=== PATIENT | male | born 1990 | race African-American/Black ===

== ENCOUNTER 2016-12-23 15:31 | Emergency (ER) | payer SELFPAY ==
--- NOTE | 2016-12-23 15:38 | PD ---
HPI . chest pain x 1 year Chief Complaint: chest pain x 1 year Time Seen by Provider: 15:38 Travel History International Travel<30 days: No Contact w/Intl Traveler<30days: No Traveled to known affect area: No History of Present Illness HPI 26 yr old male here with complaints of chest pain for 1 year. Patient tells me that he has chest pain every day for 1 year and he has been to this hospital numerous times and has not had anything done about his chest pain. I have reviewed his records and I do not see any visits for chest pain. He says the pain is deep in his chest and sharp without radiation. He admits to nausea, vomiting, and shortness of breath. When asked about the duration of the symptoms, he tells me that this happens every day. He says he last vomited yesterday 3. In regards to shortness of breath he has none at this time. He does not have a primary care provider and tells me he is homeless. He states he is from [place] and does not know where his family is. He appears to be intoxicated by a drug or some substance, he declines usage. He admits to smoking cigarettes daily. [facility] Social History Alcohol Use: Yes Tobacco Use: Yes Substance Use: No Allergies-Medications (Allergen,Severity, Reaction): Coded Allergies: No Known Allergies (Unverified , 12/23/16) Review of Systems General / Constitutional: No: Fever Eyes: No: Visual changes HENT: No: Headaches Cardiovascular: Positive: Chest Pain or Discomfort Respiratory: Positive: Shortness of Breath Gastrointestinal: Positive: Nausea, Vomiting, No: Abdominal Pain Genitourinary: No: Dysuria Musculoskeletal: No: Pain Skin: No Rash Neurologic: No: Weakness Psychiatric: No: Depression Endocrine: No: Polydipsia Hematologic/Lymphatic: No: Easy Bruising Physical Exam Narrative GENERAL: AAO x 3, no acute distress, Well-nourished, well-developed patient. SKIN: Warm and dry. No visible rashes or bruising. HEAD: Normocephalic and atraumatic. EYES: No scleral icterus. No injection or drainage. EOM intact, PERRLA, mild erythema of sclera ENT: No nasal drainage noted. Mucous membranes pink. Airway patent. NECK: Supple, trachea midline. No JVD. CARDIOVASCULAR: Regular rate and rhythm without murmurs, gallops, or rubs. non reproducible chest pain on palpation RESPIRATORY: Breath sounds equal bilaterally. No accessory muscle use. No rhonchi or rales. GASTROINTESTINAL: Abdomen soft, non-tender, nondistended. EXTREMITIES: No cyanosis or edema. BACK: Nontender without obvious deformity. No CVA tenderness. 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 Data Data Last Documented VS Vital Signs Date Time Temp Pulse Resp B/P Pulse Ox O2 Delivery O2 Flow Rate FiO2 12/23/16 15:41 110 17 98 Room Air Orders Electrocardiogram (12/23/16 15:42) Basic Metabolic Panel (Bmp) (12/23/16 15:42) Ckmb (Isoenzyme) Profile (12/23/16 15:42) Complete Blood Count With Diff (12/23/16 15:42) Magnesium (Mg) (12/23/16 15:42) Prothrombin Time / Inr (Pt) (12/23/16 15:42) Act Partial Throm Time (Ptt) (12/23/16 15:42) Troponin I (12/23/16 15:42) Chest, Single Ap (12/23/16 15:42) Ecg Monitoring (12/23/16 15:42) Bilateral Bp Monitoring (12/23/16 15:42) Iv Access Insert/Monitor (12/23/16 15:42) Oximetry (12/23/16 15:42) Oxygen Administration (12/23/16 15:42) Sodium Chloride 0.9% Flush (Ns Flush) (12/23/16 15:45) Drug Screen, Random Urine (12/23/16 15:42) MDM Medical Decision Making Medical Screen Exam Complete: Yes Emergency Medical Condition: Yes Medical Record Reviewed: Yes Differential Diagnosis Chest pain, angina, ACS, Narrative Course I started workup on this patient. Apparently when Radiology came to take xray he was agitated and wanted to leave. 1549: I witnessed patient leaving the emergency department. He pulled his IV out and walked out of the emergency department. Diagnosis Primary Impression: Left against medical advice Disposition: AGAINST MEDICAL ADVICE Condition: Stable Belkis Rodriguez Dec 23, 2016 15:38
[2016-12-23] MEDS ORDERED: SODIUM CHLORIDE 0.9% FLUSH 10 ML FLUSH IVF PRN (15:45)
== END 2016-12-23 16:08 | disposition left against medical advice (07) ==
LOC: NEPD 15:31
DX: Z53.21 Procedure and treatment not carried out due to patient leaving prior to being seen by health care provider (principal)
CPT/HCPCS: 99281

== ENCOUNTER 2016-12-23 18:24 | Emergency (ER) | payer SELFPAY ==
[~2016-12-23] VITALS: Ht 182.9 cm; Wt 75.0 kg
[2016-12-23 18:29] VITALS: BP 138/78; PULSE 104; RESP 16; TEMP 98.2; O2SAT 98
--- NOTE | 2016-12-24 12:24 | EKG ---
Date Performed: 12/24/2016 Time Performed: 00:40:53 PTAGE: 26 years EKG: Sinus rhythm NONSPECIFIC T-WAVE ABNORMALITY BORDERLINE ECG NO PREVIOUS TRACING DOCTOR: Mo Pruitt Interpretating Date/Time 12/24/2016 12:20:16
== END 2016-12-24 | disposition left against medical advice (07) ==
LOC: NEPE 18:24
DX: R07.9 Chest pain, unspecified (principal); Z53.20 Procedure and treatment not carried out because of patient's decision for unspecified reasons
CPT/HCPCS: 93005; 99281

== ENCOUNTER 2016-12-23 23:16 | Emergency (ER) | payer SELFPAY ==
[~2016-12-23] VITALS: Ht 188 cm; Wt 97.0 kg
[2016-12-23 23:18] VITALS: BP 139/79; PULSE 82; RESP 16; TEMP 98.6; O2SAT 98
[2016-12-24] MEDS ORDERED: SODIUM CHLORIDE 0.9% FLUSH 10 ML FLUSH IVF PRN (01:15)
[2016-12-24] MEDS ORDERED: KETOROLAC TROMETHAMINE 30 MG/ML (IVP) VIAL IV PUSH ONE (01:15)
[2016-12-24] MEDS ORDERED: SODIUM CHLOR 0.9% 1000 ML INJ 1,000 ML IV ONE (01:15)
[2016-12-24 01:52] LABS: AUTOMATED NEUTROPHIL # 3.6 TH/MM3 (1.8-7.7); BASOPHIL % 0.3 % (0.0-2.0); EOSINOPHIL # 0.1 TH/MM3 (0-0.4); EOSINOPHIL % 1.5 % (0.0-4.0); HEMATOCRIT 42.8 % (39.0-51.0); HEMO FLAGS DIFF FINAL; LYMPH % 36.3 % (9.0-44.0); LYMPHOCYTE # 2.5 TH/MM3 (1.0-4.8); MEAN CORPUSCULAR HEMOGLOBIN 32.1 PG (27.0-34.0); MEAN CORPUSCULAR HGB CONC 32.8 % (32.0-36.0); MONO % 9.2 % (0.0-8.0); NEUT % 52.7 % (16.0-70.0); PLATELET COUNT 204 TH/MM3 (150-450); RED BLOOD COUNT 4.37 MIL/MM3 (4.50-5.90); RED CELL DISTRIBUTION WIDTH 12.1 % (11.6-17.2); WHITE BLOOD COUNT 6.8 TH/MM3 (4.0-11.0)
--- NOTE | 2016-12-24 01:53 | RADRPT ---
EXAM DATE/TIME: 12/24/2016 01:18 [facility] COMPARISON: No previous studies available for comparison. INDICATIONS : Chest pain and shortness of breath. MEDICAL HISTORY : None. SURGICAL HISTORY : None. ENCOUNTER: Initial ACUITY: 1 week PAIN SCORE: 7/10 LOCATION: Bilateral chest FINDINGS: A single view of the chest demonstrates the lungs to be symmetrically aerated without evidence of mas s, infiltrate or effusion. The cardiomediastinal contours are unremarkable. Osseous structures are intact. CONCLUSION: No acute disease. Gurwinder Ford MD on December 24, 2016 at 1:51 Board Certified Radiologist. This report was verified electronically.
[2016-12-24 02:00] VITALS: RESP 20; O2SAT 100
[2016-12-24 02:27] LABS: APTT (PATIENT) 28.5 SEC (24.3-30.1)
--- NOTE | 2016-12-24 02:36 | PD ---
HPI Chief Complaint: Chest Pain Time Seen by Provider: 00:58 Travel History International Travel<30 days: No Contact w/Intl Traveler<30days: No Traveled to known affect area: No History of Present Illness HPI Patient is a 26-year-old male who presents to emergency room for evaluation of chest pain. Patient reports that he has been having chest pain for the past year, reports that symptoms have been intermittent in nature. Patient reports only has pain, pain is located to his left chest, reports the pain felt a sharp and stabbing sensation to his chest. Reports the pain is nonradiating in nature. Patient reports that nothing makes his pain better or worse. Patient denies any diaphoresis, nausea or vomiting with symptoms. Patient denies any shortness of breath with his symptoms. Reports no recent travels or trips. Reports that he does not have any medical history, reports that he is a smoker, and does use marijuana occasionally. Patient denies any use of cocaine. Patient denies family history of early coronary artery disease PFSH Past Medical History Medical History: Denies Significant Hx Past Surgical History Surgical History: No Previous Surgery Social History Alcohol Use: Yes (ONCE WEEKLY) Tobacco Use: Yes (1 PPW) Substance Use: No Allergies-Medications (Allergen,Severity, Reaction): Coded Allergies: No Known Allergies (Unverified , 12/24/16) Reported Meds & Prescriptions Reported Meds & Active Scripts Active No Active Prescriptions or Reported Medications Review of Systems General / Constitutional: No: Fever Eyes: No: Visual changes HENT: No: Headaches Cardiovascular: Positive: Chest Pain or Discomfort, Palpitations Respiratory: No: Shortness of Breath Gastrointestinal: No: Abdominal Pain Genitourinary: No: Dysuria Musculoskeletal: No: Pain Skin: No Rash Neurologic: No: Weakness Psychiatric: No: Depression Endocrine: No: Polydipsia Hematologic/Lymphatic: No: Easy Bruising Physical Exam Narrative GENERAL: Nad, nontoxic SKIN: Focused skin assessment warm/dry. HEAD: Atraumatic. Normocephalic. EYES: Pupils equal and round. No scleral icterus. No injection or drainage. ENT: No nasal bleeding or discharge. Mucous membranes pink and moist. NECK: Trachea midline. No JVD. CARDIOVASCULAR: Regular rate and rhythm. No murmur appreciated. RESPIRATORY: No accessory muscle use. Clear to auscultation. Breath sounds equal bilaterally. GASTROINTESTINAL: Abdomen soft, non-tender, nondistended. Hepatic and splenic margins not palpable. MUSCULOSKELETAL: No obvious deformities. No clubbing. No cyanosis. No edema. NEUROLOGICAL: Awake and alert. No obvious cranial nerve deficits. Motor grossly within normal limits. Normal speech. PSYCHIATRIC: Appropriate mood and affect; insight and judgment normal. Data Data Last Documented VS Vital Signs Date Time Temp Pulse Resp B/P Pulse Ox O2 Delivery O2 Flow Rate FiO2 12/24/16 03:26 20 12/23/16 23:18 98.6 82 139/79 98 Orders Basic Metabolic Panel (Bmp) (12/24/16 01:01) Complete Blood Count With Diff (12/24/16 01:01) D-Dimer (12/24/16 01:01) Magnesium (Mg) (12/24/16 01:01) Prothrombin Time / Inr (Pt) (12/24/16 01:01) Act Partial Throm Time (Ptt) (12/24/16 01:01) Chest, Single Ap (12/24/16 01:01) Ecg Monitoring (12/24/16 01:01) Iv Access Insert/Monitor (12/24/16 01:01) Oximetry (12/24/16 01:01) Sodium Chloride 0.9% Flush (Ns Flush) (12/24/16 01:15) Sodium Chlor 0.9% 1000 Ml Inj (Ns 1000 M (12/24/16 01:15) Ketorolac Inj (Toradol Inj) (12/24/16 01:15) Labs Laboratory Tests Test 12/24/16 01:25 White Blood Count 6.8 TH/MM3 Red Blood Count 4.37 MIL/MM3 Hemoglobin 14.0 GM/DL Hematocrit 42.8 % Mean Corpuscular Volume 98.0 FL Mean Corpuscular Hemoglobin 32.1 PG Mean Corpuscular Hemoglobin 32.8 % Concent Red Cell Distribution Width 12.1 % Platelet Count 204 TH/MM3 Mean Platelet Volume 7.8 FL Neutrophils (%) (Auto) 52.7 % Lymphocytes (%) (Auto) 36.3 % Monocytes (%) (Auto) 9.2 % Eosinophils (%) (Auto) 1.5 % Basophils (%) (Auto) 0.3 % Neutrophils # (Auto) 3.6 TH/MM3 Lymphocytes # (Auto) 2.5 TH/MM3 Monocytes # (Auto) 0.6 TH/MM3 Eosinophils # (Auto) 0.1 TH/MM3 Basophils # (Auto) 0.0 TH/MM3 CBC Comment DIFF FINAL Differential Comment Prothrombin Time 11.0 SEC Prothromb Time International 1.0 RATIO Ratio Activated Partial 28.5 SEC Thromboplast Time D-Dimer Quantitative (PE/DVT) 0.32 MG/L FEU Sodium Level 141 MEQ/L Potassium Level 3.8 MEQ/L Chloride Level 104 MEQ/L Carbon Dioxide Level 27.4 MEQ/L Anion Gap 10 MEQ/L Blood Urea Nitrogen 6 MG/DL Creatinine 0.76 MG/DL Estimat Glomerular Filtration 153 ML/MIN Rate Random Glucose 73 MG/DL Calcium Level 8.5 MG/DL Magnesium Level 1.9 MG/DL [facility] Medical Decision Making Medical Screen Exam Complete: Yes Emergency Medical Condition: Yes Interpretation(s) EKG at 0040: NSR at 73bpm, qt/qtc: 363/388, no acute ST or T-wave changes Vital Signs Date Time Temp Pulse Resp B/P Pulse Ox O2 Delivery O2 Flow Rate FiO2 12/23/16 23:18 98.6 82 16 139/79 98 Differential Diagnosis Differential includes costochondritis, ACS, arrhythmia, electrolyte abnormality , PE, pneumothorax, drug abuse Narrative Course Patient with atypical chest pain. EKG with no acute changes. Patient with no history of hypertension, hyperlipidemia or diabetes. No family history of coronary disease or NH early in age. Patient was placed on a quality assurance monitor chassis upon arrival to emergency room. EKG was obtained. Lab work including d-dimer ordered. X-ray chest ordered. Toradol ordered for pain. Vital Signs Date Time Temp Pulse Resp B/P Pulse Ox O2 Delivery O2 Flow Rate FiO2 12/24/16 03:26 20 12/23/16 23:18 98.6 82 16 139/79 98 Laboratory Tests Test 12/24/16 01:25 White Blood Count 6.8 TH/MM3 (4.0-11.0) Red Blood Count 4.37 MIL/MM3 (4.50-5.90) Hemoglobin 14.0 GM/DL (13.0-17.0) Hematocrit 42.8 % (39.0-51.0) Mean Corpuscular Volume 98.0 FL (80.0-100.0) Mean Corpuscular Hemoglobin 32.1 PG (27.0-34.0) Mean Corpuscular Hemoglobin 32.8 % Concent (32.0-36.0) Red Cell Distribution Width 12.1 % (11.6-17.2) Platelet Count 204 TH/MM3 (150-450) Mean Platelet Volume 7.8 FL (7.0-11.0) Neutrophils (%) (Auto) 52.7 % (16.0-70.0) Lymphocytes (%) (Auto) 36.3 % (9.0-44.0) Monocytes (%) (Auto) 9.2 % (0.0-8.0) Eosinophils (%) (Auto) 1.5 % (0.0-4.0) Basophils (%) (Auto) 0.3 % (0.0-2.0) Neutrophils # (Auto) 3.6 TH/MM3 (1.8-7.7) Lymphocytes # (Auto) 2.5 TH/MM3 (1.0-4.8) Monocytes # (Auto) 0.6 TH/MM3 (0-0.9) Eosinophils # (Auto) 0.1 TH/MM3 (0-0.4) Basophils # (Auto) 0.0 TH/MM3 (0-0.2) CBC Comment DIFF FINAL Differential Comment Prothrombin Time 11.0 SEC (9.8-11.6) Prothromb Time International 1.0 RATIO Ratio Activated Partial 28.5 SEC Thromboplast Time (24.3-30.1) D-Dimer Quantitative (PE/DVT) 0.32 MG/L FEU (0.00-0.50) Sodium Level 141 MEQ/L (136-145) Potassium Level 3.8 MEQ/L (3.5-5.1) Chloride Level 104 MEQ/L (98-107) Carbon Dioxide Level 27.4 MEQ/L (21.0-32.0) Anion Gap 10 MEQ/L (5-15) Blood Urea Nitrogen 6 MG/DL (7-18) Creatinine 0.76 MG/DL (0.60-1.30) Estimat Glomerular Filtration 153 ML/MIN Rate (>89) Random Glucose 73 MG/DL (74-106) Calcium Level 8.5 MG/DL (8.5-10.1) Magnesium Level 1.9 MG/DL (1.5-2.5) Last Impressions Chest X-Ray 12/24/16 0101 Signed Impressions: Service Date/Time: Saturday, December 24, 2016 01:18 - CONCLUSION: No acute disease. Gurwinder Ford MD Patient feeling much better at this time. I reviewed all labs and studies with patient in detail. Patient with most likely costochondritis. Plan to discharge patient home with follow-up with his primary care doctor. Signs and symptoms of when to return to the emergency room reviewed patient in detail. Diagnosis Primary Impression: Chest pain Additional Impression: Costochondritis Patient Instructions: General Instructions Additional Instructions: Please follow-up with your primary care doctor Return to the emergency room as needed Return to the emergency room if symptoms worsen or persist Scripts No Active Prescriptions or Reported Meds Disposition: 01 DISCHARGE HOME Condition: Stable Mary Mccormick DO Dec 24, 2016 02:36
[2016-12-24 02:56] LABS: BICARBONATE 27.4 MEQ/L (21.0-32.0); MAGNESIUM 1.9 MG/DL (1.5-2.5); POTASSIUM 3.8 MEQ/L (3.5-5.1)
[2016-12-24 03:26] VITALS: RESP 20
[2016-12-24 04:36] VITALS: BP 138/60
== END 2016-12-24 04:39 | disposition home or self-care (01) ==
LOC: NEPC 23:16
DX: M94.0 Chondrocostal junction syndrome [Tietze] (principal); F17.210 Nicotine dependence, cigarettes, uncomplicated
CPT/HCPCS: 71010; 80048; 83735; 85025; 85379; 85610; 85730; 96361; 96374; 99284; J1885; J7030

== ENCOUNTER 2017-04-12 01:10 | Emergency (ER) | payer MEDICAID ==
[~2017-04-12] VITALS: Ht 188 cm; Wt 97.0 kg
[~2017-04-12 01:10] MED LIST: IBUP1TAB7 PO
[2017-04-12 01:17] VITALS: BP 175/76; PULSE 114; RESP 24; TEMP 98.3; O2SAT 98
--- NOTE | 2017-04-12 01:35 | PD ---
HPI Chief Complaint: Pain: Acute or Chronic Time Seen by Provider: 01:28 Travel History International Travel<30 days: No Contact w/Intl Traveler<30days: No Traveled to known affect area: No History of Present Illness HPI APPARENTLY PATIENT MADE SOME COMMENTS TO GIRLFRIEND, THAT WERE SUICIDAL IN NATURE, [employer] PLACED PATIENT IN [place]. PATIENT WAS TAKEN TO [facility] WHERE HE C/O CP, AND WAS NOTED TO BE HYPERTENSIVE (PT STATES HE HAS A HISTORY OF HTN BUT HAS NOT TAKEN ANY MEDS FOR A YEAR). PATIENT DESCRIBES CP SHARP, NONRADIATING, WORSE WITH MOVEMENT. PFSH Past Medical History ADHD: Yes Bipolar Disorder: Yes Anxiety: Yes Diminished Hearing: No Hypertension: Yes (doesnt take his meds) Past Surgical History Surgical History: No Previous Surgery Social History Alcohol Use: Yes (/ pint vodka everyday) Tobacco Use: Yes (06/08 PPD) Substance Use: No Allergies-Medications (Allergen,Severity, Reaction): Coded Allergies: No Known Allergies (Unverified Adverse Reaction, Unknown, 04/12/17) Reported Meds & Prescriptions Reported Meds & Active Scripts Active Reported Ibuprofen 800 Mg Tab 800 Mg PO Q8H PRN Review of Systems Except as stated in HPI: all other systems reviewed are Neg General / Constitutional: No: Fever Eyes: No: Visual changes HENT: No: Headaches Cardiovascular: Positive: Chest Pain or Discomfort Respiratory: No: Shortness of Breath Gastrointestinal: No: Abdominal Pain Genitourinary: No: Dysuria Musculoskeletal: No: Pain Skin: No Rash Neurologic: No: Weakness Psychiatric: No: Depression Endocrine: No: Polydipsia Hematologic/Lymphatic: No: Easy Bruising Physical Exam Narrative GENERAL: SKIN: Warm and dry. HEAD: Atraumatic. Normocephalic. EYES: Pupils equal and round. No scleral icterus. No injection or drainage. ENT: No nasal bleeding or discharge. Mucous membranes pink and moist. NECK: Trachea midline. No JVD. CARDIOVASCULAR: Regular rate and rhythm. RESPIRATORY: No accessory muscle use. Clear to auscultation. Breath sounds equal bilaterally. GASTROINTESTINAL: Abdomen soft, non-tender, nondistended. MUSCULOSKELETAL: Extremities without clubbing, cyanosis, or edema. No obvious deformities. NEUROLOGICAL: Awake and alert. No obvious cranial nerve deficits. Motor grossly within normal limits. Five out of 5 muscle strength in the arms and legs. Normal speech. PSYCHIATRIC: Appropriate mood and affect; insight and judgment normal. Data Data Last Documented VS Vital Signs Date Time Temp Pulse Resp B/P (MAP) Pulse Ox O2 Delivery O2 Flow Rate FiO2 04/12/17 04:22 65 14 123/56 (78) 97 Room Air 04/12/17 01:17 98.3 Orders Orders Complete Blood Count With Diff (04/12/17 01:28) Basic Metabolic Panel (Bmp) (04/12/17:28) Urinalysis - C+S If Indicated (04/12/17:28) Electrocardiogram (04/12/17:28) Psych Screen (04/12/17:) Drug Screen, Random Urine (04/12/17:) Alcohol (Ethanol) (04/12/17:28) Salicylates (Aspirin) (04/12/17:28) Tylenol (Acetaminophen) (04/12/17 01:28) Troponin I (04/12/17 01:54) Clonidine (Catapres) (04/12/17 02:15) Troponin I (04/12/17 05:00) Chest, Single Ap (04/12/17 05:38) Labs Laboratory Tests Test 04/12/17 02:00 04/12/17 04:15 White Blood Count 6.0 TH/MM3 Red Blood Count 4.76 MIL/MM3 Hemoglobin 15.6 GM/DL Hematocrit 46.4 % Mean Corpuscular Volume 97.5 FL Mean Corpuscular Hemoglobin 32.7 PG Mean Corpuscular Hemoglobin Concent 33.6 % Red Cell Distribution Width 12.0 % Platelet Count 200 TH/MM3 Mean Platelet Volume 7.9 FL Neutrophils (%) (Auto) 42.6 % Lymphocytes (%) (Auto) 48.5 % Monocytes (%) (Auto) 8.1 % Eosinophils (%) (Auto) 0.3 % Basophils (%) (Auto) 0.5 % Neutrophils # (Auto) 2.6 TH/MM3 Lymphocytes # (Auto) 2.9 TH/MM3 Monocytes # (Auto) 0.5 TH/MM3 Eosinophils # (Auto) 0.0 TH/MM3 Basophils # (Auto) 0.0 TH/MM3 CBC Comment AUTO DIFF Differential Comment AUTO DIFF CONFIRMED Platelet Estimate NORMAL Platelet Morphology Comment NORMAL Red Cell Morphology Comment NORMAL Blood Urea Nitrogen 9 MG/DL Creatinine 0.79 MG/DL Random Glucose 94 MG/DL Calcium Level 8.8 MG/DL Sodium Level 140 MEQ/L Potassium Level 3.4 MEQ/L Chloride Level 102 MEQ/L Carbon Dioxide Level 23.6 MEQ/L Anion Gap 14 MEQ/L Estimat Glomerular Filtration Rate 145 ML/MIN Troponin I LESS THAN 0.02 NG/ML LESS THAN 0.02 NG/ML Salicylates Level 2.9 MG/DL Acetaminophen Level LESS THAN 2.0 MCG/ML Ethyl Alcohol Level 296 MG/DL MDM Medical Decision Making Medical Screen Exam Complete: Yes Emergency Medical Condition: Yes Medical Record Reviewed: Yes Interpretation(s) EKG NSR 98, NL INTERVALS, NO STEMI PATTERN, J POINT ELEVATION Differential Diagnosis ATYPICAL CP V STEMI V NONSTEMI Narrative Course CXR IS NEG FOR PNA/PTX....EKG NEG FOR IN, TROPONIN X 2 NEG FOR NONSTEMI WELL. PATIENT IS PAIN FREE (AND HAS BEEN PAIN FREE SINCE ARRIVING IN ER DEPARTMENT). Diagnosis Primary Impression: [place] Additional Impressions: MEDICALLY CLEARED Non-cardiac chest pain Niko Moise MD Apr 12, 2017 01:35
[2017-04-12] MEDS: cloNIDine HCL 0.1 MG TAB PO ONE ×2 (02:30→02:41)
[2017-04-12 02:43] LABS: AUTOMATED NEUTROPHIL # 2.6 TH/MM3 (1.8-7.7); BASOPHIL % 0.5 % (0.0-2.0); EOSINOPHIL % 0.3 % (0.0-4.0); HEMATOCRIT 46.4 % (39.0-51.0); LYMPH % 48.5 % (9.0-44.0); LYMPHOCYTE # 2.9 TH/MM3 (1.0-4.8); MEAN CELL VOLUME 97.5 FL (80.0-100.0); MEAN CORPUSCULAR HEMOGLOBIN 32.7 PG (27.0-34.0); MEAN CORPUSCULAR HGB CONC 33.6 % (32.0-36.0); MONO % 8.1 % (0.0-8.0); NEUT % 42.6 % (16.0-70.0); PLATELET COUNT 200 TH/MM3 (150-450); RED BLOOD COUNT 4.76 MIL/MM3 (4.50-5.90)
[2017-04-12 02:46] LABS: HEMO FLAGS AUTO DIFF
[2017-04-12 03:17] LABS: ANION GAP 14 MEQ/L (5-15)
[2017-04-12 03:29] LABS: BICARBONATE 23.6 MEQ/L (21.0-32.0); BLOOD UREA NITROGEN 9 MG/DL (7-18); CHLORIDE 102 MEQ/L (98-107); GLOMERULAR FILTRATION RATE 145 ML/MIN (>89); POTASSIUM 3.4 MEQ/L (3.5-5.1); SODIUM (NA) 140 MEQ/L (136-145)
[2017-04-12 03:37] LABS: ACETAMINOPHEN LESS THAN 2.0 MCG/ML (10.0-30.0); ALCOHOL 296 MG/DL (0-5)
[2017-04-12 03:43] LABS: PLATELET ESTIMATE SMEAR NORMAL (NORMAL)
[2017-04-12 03:44] LABS: PLATELET MORPHOLOGY NORMAL (NORMAL); SCAN/DIFF AUTO DIFF CONFIRMED
[2017-04-12 04:22] VITALS: BP 123/56; PULSE 65; RESP 14; O2SAT 97
--- NOTE | 2017-04-12 06:09 | RADRPT ---
EXAM DATE/TIME: 04/12/2017 05:44 [facility] COMPARISON: CHEST SINGLE AP, December 24, 2016, 1:18. INDICATIONS : Chest pain. MEDICAL HISTORY : None. SURGICAL HISTORY : None. ENCOUNTER: Initial ACUITY: 1 day PAIN SCORE: 0/10 LOCATION: Bilateral chest FINDINGS: A single view of the chest demonstrates the lungs to be symmetrically aerated without evidence of mas s, infiltrate or effusion. The cardiomediastinal contours are unremarkable. Osseous structures are intact. CONCLUSION: 1. No acute cardiopulmonary disease. Tremaine Madrid MD on April 12, 2017 at 6:07 Board Certified Radiologist. This report was verified electronically.
[2017-04-12 06:27] VITALS: BP 153/70; PULSE 95; RESP 18; O2SAT 97
[2017-04-12 08:45] LABS: BLOOD, URINE NEG (NEG); COMMENT (UR) CULT NOT INDICATED; CULTURE IF INDICATED CULT NOT INDICATED; GLUCOSE,URINE NEG (NEG); HYALINE CAST, URINE 1 /lpf (RARE); KETONE, URINE NEG (NEG); MUCUS URINE MANY /lpf (OCC); NITRITE,URINE NEG (NEG); SQUAMOUS EPITHELIAL CELL URINE 1 /hpf (0-5); URINE COLOR YELLOW (YELLW/STRAW)
--- NOTE | 2017-04-12 09:36 | EKG ---
Date Performed: 04/12/2017 Time Performed: 01:16:59 PTAGE: 27 years EKG: Sinus rhythm SEPTAL MYOCARDIAL INFARCTION ABNORMAL ECG PREVIOUS TRACING : 12/24/2016 00.40 DOCTOR: Kamlesh Liu Interpretating Date/Time 04/12/2017 09:33:15
[2017-04-12 10:57] VITALS: BP 174/75; PULSE 94; RESP 18; TEMP 98.2; O2SAT 98
[2017-04-12] MEDS ORDERED: AMLO5TAB2 PO (11:13)
[2017-04-12] MEDS ORDERED: amLODIPine BESYLATE 5 MG TAB PO ONE (11:15)
--- NOTE | 2017-04-12 11:15 | PD ---
Physical Exam Time Seen by Provider: 11:14 Data Data Last Documented VS Vital Signs Date Time Temp Pulse Resp B/P (MAP) Pulse Ox O2 Delivery O2 Flow Rate FiO2 04/12/17 10:57 98.2 94 18 174/75 (108) 98 04/12/17 06:27 Room Air Orders Orders Complete Blood Count With Diff (04/12/17 01:28) Basic Metabolic Panel (Bmp) (04/12/17 01:28) Urinalysis - C+S If Indicated (04/12/17 01:28) Electrocardiogram (04/12/17 01:28) Psych Screen (04/12/17 01:28) Drug Screen, Random Urine (04/12/17 01:28) Alcohol (Ethanol) (04/12/17 01:28) Salicylates (Aspirin) (04/12/17 01:28) Tylenol (Acetaminophen) (04/12/17 01:28) Troponin I (04/12/17 01:54) Clonidine (Catapres) (04/12/17 02:15) Troponin I (04/12/17 05:00) Chest, Single Ap (04/12/17 05:38) Diet Regular Basic (04/12/17 Breakfast) Labs Laboratory Tests Test 04/12/17 02:00 04/12/17 04:15 04/12/17 08:15 White Blood Count 6.0 TH/MM3 Red Blood Count 4.76 MIL/MM3 Hemoglobin 15.6 GM/DL Hematocrit 46.4 % Mean Corpuscular Volume 97.5 FL Mean Corpuscular Hemoglobin 32.7 PG Mean Corpuscular Hemoglobin Concent 33.6 % Red Cell Distribution Width 12.0 % Platelet Count 200 TH/MM3 Mean Platelet Volume 7.9 FL Neutrophils (%) (Auto) 42.6 % Lymphocytes (%) (Auto) 48.5 % Monocytes (%) (Auto) 8.1 % Eosinophils (%) (Auto) 0.3 % Basophils (%) (Auto) 0.5 % Neutrophils # (Auto) 2.6 TH/MM3 Lymphocytes # (Auto) 2.9 TH/MM3 Monocytes # (Auto) 0.5 TH/MM3 Eosinophils # (Auto) 0.0 TH/MM3 Basophils # (Auto) 0.0 TH/MM3 CBC Comment AUTO DIFF Differential Comment AUTO DIFF CONFIRMED Platelet Estimate NORMAL Platelet Morphology Comment NORMAL Red Cell Morphology Comment NORMAL Blood Urea Nitrogen 9 MG/DL Creatinine 0.79 MG/DL Random Glucose 94 MG/DL Calcium Level 8.8 MG/DL Sodium Level 140 MEQ/L Potassium Level 3.4 MEQ/L Chloride Level 102 MEQ/L Carbon Dioxide Level 23.6 MEQ/L Anion Gap 14 MEQ/L Estimat Glomerular Filtration Rate 145 ML/MIN Troponin I LESS THAN 0.02 NG/ML LESS THAN 0.02 NG/ML Salicylates Level 2.9 MG/DL Acetaminophen Level LESS THAN 2.0 MCG/ML Ethyl Alcohol Level 296 MG/DL Urine Color YELLOW Urine Turbidity CLEAR Urine pH 6.0 Urine Specific [place] 1.037 Urine Protein 30 mg/dL Urine Glucose (UA) NEG mg/dL Urine Ketones NEG mg/dL Urine Occult Blood NEG Urine Nitrite NEG Urine Bilirubin NEG Urine Urobilinogen 2.0 MG/DL Urine Leukocyte Esterase NEG Urine RBC LESS THAN 1 /hpf Urine WBC 2 /hpf Urine Squamous Epithelial Cells 1 /hpf Urine Hyaline Casts 1 /lpf Urine Mucus MANY /lpf Microscopic Urinalysis Comment CULT NOT INDICATED Urine Opiates Screen NEG Urine Barbiturates Screen NEG Urine Amphetamines Screen NEG Urine Benzodiazepines Screen NEG Urine Cocaine Screen POS Urine Cannabinoids Screen POS MDM Medical Record Reviewed: Yes Supervised Visit with JULIO: No Narrative Course Please see previous providers notes. I was asked to deal with his hypertension. He has a history of hypertension but has not been medicated for over a year. He does not remember what his blood pressure medication was. He will be started on a low-dose amlodipine and he is apparently being transferred back to [facility] today. Diagnosis Primary Impression: [place] Additional Impressions: Non-cardiac chest pain MEDICALLY CLEARED Scripts Amlodipine (Amlodipine) 5 Mg Tab 5 MG PO DAILY for Blood Pressure Management, #30 TAB 0 Refills Prov: Niko Moise MD 04/12/17 Rory Ventura Apr 12, 2017 11:15
== END 2017-04-12 13:36 ==
LOC: NEPC 01:10 → NEPJ 13:36
DX: Z02.89 Encounter for other administrative examinations (principal); R07.89 Other chest pain; R94.31 Abnormal electrocardiogram [ECG] [EKG]; I10 Essential (primary) hypertension; F17.200 Nicotine dependence, unspecified, uncomplicated; Z79.899 Other long term (current) drug therapy; Z86.59 Personal history of other mental and behavioral disorders
CPT/HCPCS: 71010; 80048; 80307; 81001; 84484; 85025; 93005